=== PATIENT | male | born 1990 | race Caucasian/White ===

== ENCOUNTER 2023-03-13 14:54 | Emergency (ER) | payer SELFPAY ==
[~2023-03-13] VITALS: Ht 172.7 cm; Wt 63.6 kg
[2023-03-13 15:10] VITALS: TEMP 98.3
[2023-03-13 16:16] LABS: HEMATOCRIT 32.4 % (41-53); HEMOGLOBIN 10.8 g/dL (13.5-17.5); MEAN CORPUSCULAR HGB CONC 33.4 G/dL (31.0-37.0); MEAN CORPUSCULAR VOLUME 90 fL (80-100); PLATELET COUNT (AUTO) 196 K/uL (150-450); RED BLOOD CELL COUNT(AUTO) 3.61 MIL/uL (4.50-5.90); RED CELL DISTRIBUTION WIDTH 13.6 % (11.5-14.5); WHITE BLOOD COUNT (AUTO) 19.5 K/uL (4.5-11.0)
[2023-03-13 16:22] LABS: ANION GAP 9 mmol/L (8-16); CALCIUM, TOTAL 9.2 mg/dL (8.8-10.5); CARBON DIOXIDE 30 mmol/L (22-29); CHLORIDE 95 mmol/L (98-107); CREATININE 1.15 mg/dL (0.60-1.30); GLOMERULAR FILTR. RATE CALC > 60 mL/min (>60); GLUCOSE,RANDOM 126 mg/dL (70-110); POTASSIUM 3.9 mmol/L (3.5-5.1); SODIUM SERUM 134 mmol/L (136-145); UREA NITROGEN, BLOOD 18 mg/dL (7-18)
[2023-03-13 16:28] LABS: ALCOHOL, BLOOD (SERUM) < 3 mg/dL (0-10)
[2023-03-13 16:30] LABS: TROPONIN I-HIGH SENSITIVITY 9 ng/L (<76)
[2023-03-13] MEDS ORDERED: ACETAMINOPHEN 500 MG TABLET PO ONE (16:30)
[2023-03-13 16:40] VITALS: BP 123/78; PULSE 121; RESP 20
[2023-03-13 16:43] LABS: BAND NEUTROPHILS % (MANUAL) 12 % (0-5); LYMPHOCYTES % (MANUAL) 3 % (22-44); MONOCYTES % (MANUAL) 7 % (2-9); SEGMENTED NEUTROPHILS % 78 % (40-70); TOTAL CELLS COUNTED 100
[2023-03-13] MEDS ORDERED: SODIUM CHLORIDE 0.9% 1,000 ML IV ONE (16:45)
[2023-03-13 16:56] LABS: ALANINE AMINOTRANSFERASE 49 U/L (12-78); ALBUMIN 3.5 g/dL (3.4-5.0); ALKALINE PHOSPHATASE 64 U/L (46-116); ASPARTATE AMINOTRANSFERASE 139 U/L (15-37); BILIRUBIN,TOTAL 1.9 mg/dL (0.1-1.0); TOTAL PROTEIN, SERUM 7.5 g/dL (6.4-8.2)
[2023-03-13 16:58] LABS: CREATINE KINASE, TOTAL ONLY 2635 U/L (39-308)
== END 2023-03-13 17:08 | disposition left against medical advice (07) ==
LOC: EMS 14:55
DX: S06.0XAA Concussion with loss of consciousness status unknown, initial encounter (principal); R00.0 Tachycardia, unspecified; F17.210 Nicotine dependence, cigarettes, uncomplicated; X58.XXXA Exposure to other specified factors, initial encounter; Y93.89 Activity, other specified; Y92.89 Other specified places as the place of occurrence of the external cause; Y99.8 Other external cause status
CPT/HCPCS: 99284; 80053; 82550; 84484; 85025; 93005; G0480

== ENCOUNTER 2023-03-16 17:52 | Emergency (ER) | payer MEDICAID ==
[~2023-03-16] VITALS: Ht 172.7 cm; Wt 61.4 kg
[2023-03-16 17:53] VITALS: BP 120/84; PULSE 122; RESP 16; TEMP 98.1
== END 2023-03-16 18:55 | disposition home or self-care (01) ==
LOC: EMS 17:53
DX: S01.01XD Laceration without foreign body of scalp, subsequent encounter (principal); F17.200 Nicotine dependence, unspecified, uncomplicated; X58.XXXD Exposure to other specified factors, subsequent encounter
CPT/HCPCS: 99281; Z7502